=== PATIENT | female | born 1940 | race African-American/Black ===

== ENCOUNTER 2019-07-23 11:44 | Emergency (ER) | payer OTHER ==
[~2019-07-23] VITALS: Ht 165.1 cm; Wt 100.0 kg
[2019-07-23] MEDS ORDERED: MORPHINE SULFATE 4 MG/ML CPJ (NOT FOR IM USE) IV STA (12:19)
[2019-07-23 12:52] LABS: BASOPHILS % 0.6 % (0.0-2.0); EOSINOPHILS % 0.1 % (0.0-5.0); HEMATOCRIT. 30.6 % (36.0-48.0); HEMOGLOBIN. 9.7 g/dL (12.0-16.0); LYMPHOCYTES % 13.1 % (20.0-50.0); MEAN CORPUSCULAR HEMOGLOBIN 24.5 pg (28.0-32.0); MEAN CORPUSCULAR VOLUME 77.6 fL (81.0-99.0); MEAN PLATELET VOLUME 7.2 fl (7.4-10.4); MONOCYTES % 6.9 % (2.0-8.0); NEUTROPHILS % 79.3 % (40.0-76.0); PLATELET 737 x1000/uL (130-400); RED BLOOD CELL COUNT 3.95 mill/uL (4.2-5.4); RED CELL DISTRIBUTION WIDTH 21.7 % (11.6-14.6)
[2019-07-23 13:02] LABS: CHLORIDE 98 mEq/L (98-107)
[2019-07-23 13:08] LABS: INR 1.4; PROTHROMBIN TIME 14.7 sec (9.6-11.0)
[2019-07-23] MEDS ORDERED: SODIUM CHLORIDE 0.9% 500 ML IV NR (14:00)
[2019-07-23 15:20] LABS: CLARITY URINE CLOUDY (CLEAR); COLOR URINE YELLOW (YELLOW); KETONES URINE NEGATIVE (NEGATIVE); LEUKOCYTE ESTERASE URINE TRACE (NEGATIVE); NITRITE URINE NEGATIVE (NEGATIVE); OCCULT BLOOD URINE NEGATIVE (NEGATIVE); PROTEIN URINE TRACE (NEGATIVE); SPECIFIC GRAVITY URINE 1.015 (1.005-1.030); UROBILINOGEN URINE 0.2 E.U./dL (0.2-1.0)
[2019-07-23 21:13] VITALS: BP 129/78
== END 2019-07-23 21:22 | disposition short-term general hospital (02) ==
LOC: ER 11:44
DX: S72.8X2A Other fracture of left femur, initial encounter for closed fracture (principal); W22.03XA Walked into furniture, initial encounter; Y93.89 Activity, other specified; Y92.89 Other specified places as the place of occurrence of the external cause; Y99.8 Other external cause status; I50.9 Heart failure, unspecified; Z85.9 Personal history of malignant neoplasm, unspecified; J90 Pleural effusion, not elsewhere classified
CPT/HCPCS: 36415; 70450; 71045; 73502; 73552; 80053; 81003; 85025; 85610; 93005; 96374; 99285; J2270